=== PATIENT | male | born 1950 | race Caucasian/White ===

== ENCOUNTER 2020-07-26 15:47 | Emergency (ER) | payer MEDICAID, SELFPAY ==
[~2020-07-26] VITALS: Ht 170.2 cm; Wt 72.6 kg
[2020-07-26 15:50] VITALS: BP 140/73; Ht 170.2 cm; Wt 72.6 kg
== END 2020-07-26 16:39 | disposition home or self-care (01) ==
LOC: ED 15:47
DX: U07.1 COVID-19 (principal); B34.9 Viral infection, unspecified
CPT/HCPCS: U0003